=== PATIENT | female | born 1950 | race Caucasian/White ===

== ENCOUNTER 2017-12-08 10:04 | Emergency (ER) | payer MEDICARE ==
[~2017-12-08] VITALS: Ht 154.9 cm; Wt 68.0 kg
[2017-12-08] MEDS ORDERED: LIPITOR10 M1 PO (10:23)
[2017-12-08] MEDS ORDERED: ASPIRIN81 MG PO (10:23)
[2017-12-08] MEDS ORDERED: GABAPENTIN100 MG PO (10:23)
[2017-12-08 11:25] LABS: INFLUENZA A NONE DETECTED (NONE DETECT); INFLUENZA B NONE DETECTED (NONE DETECT)
[2017-12-08 11:54] LABS: HEMATOCRIT 40.1 % (37.0-47.0); HEMOGLOBIN 13.8 g/dl (12.0-16.0); IMMATURE GRANULOCYTES 0.5 % (0.0-1.0); MEAN CELL VOLUME 87.4 fL CALC (80.0-100.0); MEAN CORPUSCULAR HGB 30.1 pG CALC (26.0-32.0); MEAN CORPUSCULAR HGB CONC 34.4 g/L CALC (32.0-36.0); NEUT# 5.68 thou/uL (2.00-7.15); RED BLOOD COUNT 4.59 mill/uL (4.20-5.60); RED CELL DISTRI WIDTH 12.4 % (11.5-15.5)
[2017-12-08 12:04] LABS: ALBUMIN 4.5 g/dL (3.2-5.0); ALKALINE PHOSPHATASE 160 u/l (38-126); ANION GAP 16 (6-22 (CALC)); BILIRUBIN, TOTAL 0.9 mg/dL (0.0-1.4); BUN 17 mg/dL (8-23); BUN/CREATININE RATIO 19 (12-20 (CALC)); CARBON DIOXIDE 24 mmol/l (22-30); CHLORIDE 99 mmol/l (95-108); CREATININE 0.9 mg/dL (0.5-1.0); GFR > 60 ML/MIN (>=60 (CALC)); GFR FOR AFR.AMER. > 60 ML/MIN (>=60 (CALC)); POTASSIUM 3.3 mmol/l (3.5-5.1); SGOT/AST 30 u/l (9-36); SGPT/ALT 31 u/l (11-66); SODIUM 136 mmol/l (137-146); TOTAL PROTEIN 6.9 g/dL (6.3-8.2)
[2017-12-08] MEDS ORDERED: ROBITUSSIN AC10 ML PO (12:32)
[2017-12-08] MEDS ORDERED: CEPHALEXIN500 MG PO (12:32)
[2017-12-08 12:43] VITALS: BP 134/77
== END 2017-12-08 12:59 | disposition home or self-care (01) ==
LOC: ED 10:04
PROVIDERS: Emergency Medicine
DX: J06.9 Acute upper respiratory infection, unspecified (principal); R05 Cough; H92.03 Otalgia, bilateral; R50.9 Fever, unspecified